=== PATIENT | male | born 1935 | race Caucasian/White ===

== ENCOUNTER 2020-06-02 10:03 | Emergency (ER) | payer MEDICARE, OTHER ==
[2020-06-02 10:39] LABS: BASOPHILS % (AUTO) 0.5 %; EOSINOPHILS # (AUTO) 0.1 10^3/uL (0.0-0.7); EOSINOPHILS % (AUTO) 2.5 %; HGB - HEMOGLOBIN 12.6 g/dL (14.0-18.0); LYMPHOCYTES # (AUTO) 1.1 10^3/uL (1.5-3.5); LYMPHOCYTES % (AUTO) 19.1 %; MEAN CORPUSCULAR HEMOGLOBIN 33.6 pg (27.0-31.0); MEAN CORPUSCULAR HGB CONC 33.2 g/dL (32.0-36.0); MEAN CORPUSCULAR VOLUME 101.1 fL (80.0-94.0); MEAN PLATELET VOLUME 9.8 fL (7.4-11.4); MONOCYTES # (AUTO) 0.4 10^3/uL (0.0-1.0); MONOCYTES % (AUTO) 7.5 %; NEUTROPHILS % (AUTO) 69.5 %; PLT - PLATELET COUNT 133 10^3/uL (130-450); RED BLOOD COUNT 3.75 10^6/uL (4.70-6.10); RED CELL DISTRIBUTION WIDTH 14.6 % (12.0-15.0); WHITE BLOOD COUNT 5.7 x10^3/uL (4.8-10.8)
[2020-06-02 10:52] LABS: ALBUMIN 4.1 g/dL (3.2-5.5); ALBUMIN/GLOBULIN RATIO 1.5 (1.0-2.2); CALCIUM 8.9 mg/dL (8.5-10.3); CREATININE 1.7 mg/dL (0.6-1.2); TOTAL PROTEIN 6.9 g/dL (6.7-8.2)
--- NOTE | 2020-06-02 10:59 | XRAY Report ---
PROCEDURE: Chest 1 View X-Ray INDICATIONS: Chest pain TECHNIQUE: One view of the chest was acquired. COMPARISON: None FINDINGS: Surgical changes and devices: Sternotomy and CABG. Lungs and pleura: Left basilar opacity may be infiltrate or atelectasis. No pleural effusions or pne umothorax. Mediastinum: Mediastinal contours appear normal. Heart size is normal. Bones and chest wall: No suspicious bony lesions. Overlying soft tissues appear unremarkable. IMPRESSION: Left basilar pneumonia or atelectasis. Reviewed by: Levi Chao MD on 06/02/2020 10:57 AM PDT Approved by: Levi Chao MD on 06/02/2020 10:57 AM PDT Station ID: [id number]
[2020-06-02] MEDS ORDERED: SODIUM CHLORIDE 0.9% 1,000 ML IV STA (11:24)
[2020-06-02] MEDS ORDERED: cefTRIAXone 1 GM in SODIUM CHLORIDE 0.9% MINIBAG 100 ML IV STA (11:24)
[2020-06-02] MEDS ORDERED: DEXAMETHASONE 10 MG/ML VIAL IVP STA (11:24)
[2020-06-02] MEDS ORDERED: AZITHROMYCIN INJ 500 MG in SODIUM CHLORIDE 0.9% 250 ML IV STA (11:24)
--- NOTE | 2020-06-02 11:25 | ED Physician Documentation ---
PD HPI URI - Stated complaint Stated Complaint: SOA/WEAKNESS - Chief complaint Chief Complaint: General - History obtained from History obtained from: Patient - History of Present Illness Timing - onset: How many weeks ago (1) Timing duration: Weeks (1) Timing details: Gradual onset, Still present Associated symptoms: Nasal congestion, Dry cough, Dyspnea Contributing factors: Travel Improves by: Rest, Medication, O2 Worsened by: Activity Similar symptoms before: Diagnosis (pneumonia) Recently seen: Emergency Dept - Additional information Additional information: 84-year-old male with a history of pulmonary fibrosis has recently developed cough and congestion he was seen in the ER [facility] in [place] with pain in his calf had a DVT was placed on Xarelto and given a dose of ceftriaxone and Zithromax he did have a CT scan of the chest demonstrated no evidence of pulmonary embolism. Review of Systems Constitutional: reports: Myalgias, Fatigue. denies: Fever Eyes: denies: Decreased vision Ears: denies: Ear pain Nose: reports: Congestion. denies: Rhinorrhea / runny nose Throat: denies: Sore throat Cardiac: reports: Calf pain. denies: Chest pain / pressure, Palpitations, Pedal edema Respiratory: reports: Dyspnea, Cough GI: denies: Abdominal Pain, Nausea, Vomiting : denies: Dysuria, Frequency Skin: denies: Rash Musculoskeletal: denies: Neck pain, Back pain, Extremity pain PD PAST MEDICAL HISTORY - Past Medical History Past Medical History: Yes Cardiovascular: Hypertension, Coronary artery disease, Valve disorder Respiratory: Cystic fibrosis, Pneumonia Neuro: Other Endocrine/Autoimmune: HyPOthyroidism GI: Ulcers : None HEENT: None Psych: Bipolar disorder Musculoskeletal: Gout, Chronic back pain Derm: None - Past Surgical History Past Surgical History: Yes General: Cholecystectomy Ortho: Spine surgery Cardiovascular: Valve replacement - Present Medications Home Medications: Ambulatory Orders Medication Instructions Recorded Confirmed Azithromycin [Zithromax] 250 mg PO DAILY #4 tablet 06/02/20 - Social History Does the pt smoke?: No Smoking Status: Never smoker Does the pt drink ETOH?: Yes Substance Use and Type: Marijuana - Immunizations Immunizations are current?: Yes PD ED PE NORMAL - Vitals Vital signs reviewed: Yes (Hypertensive mild) - General General: Alert and oriented X 3, No acute distress, Well developed/nourished - HEENT HEENT: Atraumatic, PERRL - Neck Neck: Supple, no meningeal sign - Cardiac Cardiac: RRR, No murmur - Respiratory Respiratory: No respiratory distress, Other (Bibasilar crackles worse on the left than the right) - Abdomen Abdomen: Soft, Non tender - Back Back: No CVA TTP, No spinal TTP - Derm Derm: Normal color, Warm and dry, No rash - Extremities Extremities: No deformity, No edema, No calf tenderness / cord - Neuro Neuro: Alert and oriented X 3, service officer 2-12 intact, No motor deficit, No sensory deficit, Normal speech Eye Opening: Spontaneous Motor: Obeys Commands Verbal: Oriented GCS Score: 15 - Psych Psych: Normal mood, Normal affect Results - Vitals Vitals: Vital Signs - 24 hr 06/02/20 06/02/20 10:17 10:27 Heart Rate 81 66 Respiratory 20 18 Rate Blood Pressure 134/76 H 137/57 H O2 Saturation 93 99 Oxygen O2 Source Room air - Labs Labs: Laboratory Tests 06/02/20 06/02/20 06/02/20 10:30 10:30 10:30 WBC 5.7 RBC 3.75 L Hgb 12.6 L Hct 37.9 L MCV 101.1 H MCH 33.6 H MCHC 33.2 RDW 14.6 Plt Count 133 MPV 9.8 Neut # (Auto) 4.0 Lymph # (Auto) 1.1 L [place] # (Auto) 0.4 Eos # (Auto) 0.1 Baso # (Auto) 0.0 Absolute Nucleated RBC 0.00 Nucleated RBC % 0.0 Sodium 136 Potassium 4.2 Chloride 100 L Carbon Dioxide 24 Anion Gap 12.0 BUN 25 H Creatinine 1.7 H Estimated GFR (MDRD) 39 L Glucose 120 H Calcium 8.9 Total Bilirubin 1.0 AST 19 ALT 23 Alkaline Phosphatase 64 Troponin I High Sens 9.4 Total Protein 6.9 Albumin 4.1 Globulin 2.8 Albumin/Globulin Ratio 1.5 Lipase 39 - Rads (name of study) chest Radiology: Prelim report reviewed (Impression: Left basilar pneumonia or atelectasis.), EMP read indepedently, See rad report PD MEDICAL DECISION MAKING - ED course Complexity details: reviewed results, re-evaluated patient, considered differential, d/w patient ED course: 84-year-old male with cough and congestion as increased exertional dyspnea. He has had a recent evaluation at [facility] in [place] with a DVT he has had CT without evidence of pulmonary embolism. He does have a history of pulmonary fibrosis. Today on his chest x-ray he does have evidence of infiltrate in the left base and has corresponding breath sounds. The patient is administered a liter of saline he is given a gram of Rocephin 500 mg of a azithromycin and 10 mg of dexamethasone. Departure - Departure Disposition: 01 Home, Self Care Clinical Impression: Pneumonia Qualifiers: Pneumonia type: due to unspecified organism Laterality: left Lung location: lower lobe of lung Qualified Code(s): J18.9 - Pneumonia, unspecified organism Instructions: ED Pneumonia Adult Follow-Up: Your, doctor [Other] Prescriptions: Azithromycin [Zithromax] 250 mg PO DAILY #4 tablet
[2020-06-02 13:43] VITALS: BP 139/72
== END 2020-06-02 13:43 | disposition home or self-care (01) ==
LOC: ED 10:03
DX: J18.9 Pneumonia, unspecified organism (principal); Z86.718 Personal history of other venous thrombosis and embolism; Z79.01 Long term (current) use of anticoagulants; I10 Essential (primary) hypertension; E84.9 Cystic fibrosis, unspecified; Z87.09 Personal history of other diseases of the respiratory system
CPT/HCPCS: 36415; 71045; 80053; 83690; 84484; 85025; 93005; 96374; 99284